=== PATIENT | female | born 1960 | race African-American/Black ===

== ENCOUNTER 2021-05-18 22:40 | Emergency (ER) | payer OTHER ==
[~2021-05-18] VITALS: Ht 157.5 cm; Wt 96.8 kg
[2021-05-19 00:21] LABS: CALCIUM 7.2 mg/dL (8.5-10.1); CREATININE 10.4 mg/dL (0.6-1.0); POTASSIUM 5.4 mmol/L (3.5-5.1)
[2021-05-19 00:22] LABS: ABSOLUTE NEUTROPHILS 3.3 thou/uL (1.4-8.2); BASOPHILS 0.3 % (0.0-2.0); EOSINOPHILS 1.9 % (0.0-3.0); HEMOGLOBIN 16.7 gm/dL (12.0-15.0); LYMPHOCYTES 8.8 % (24.0-44.0); MCH 28.2 pg (26.0-34.0); MCHC 30.9 g/dL (28.0-37.0); MCV 91.3 fL (80.0-100.0); MONOCYTES 10.9 % (1.0-8.0); PLATELET COUNT 76 thou/uL (150-400); POLYS 78.1 % (36.0-66.0); RBC 5.91 mil/uL (4.20-5.00); RDW 17.1 % (10.5-14.5); WBC 4.2 thou/uL (4.0-11.0)
[2021-05-19 00:27] LABS: ALBUMIN 2.3 g/dL (3.4-5.0); TOTAL BILIRUBIN 0.3 mg/dL (0.2-1.0); TOTAL PROTEIN 5.7 g/dL (6.4-8.2)
[2021-05-19 01:55] VITALS: BP 152/73
--- NOTE | 2021-05-19 10:03 | EKG ---
[place] [address] [facility] [employer] [facility] [employer] [place] [address] ELECTROCARDIOGRAM REPORT Name: BARBARA LIMON Room #: [facility] Dixon#: [id number] Admission: 05/18/21 Attend Phys: Discharge: 05/19/21 Date of : 62 Report #: [id number] [facility] ED Test Date: 2021-05-18 Test Time: 23:51:06 Pat Name: BARBARA LIMON Department: Room: Gender: F Minister Helper: christine : 1960 Requested By: Dwayne Wilson Order Number: [id number] MD: Jorje Serna Measurements Intervals [place] Rate: 88 P: 57 SD: 137 QRS: 55 QRSD: 92 T: 258 QT: 393 QTc: 476 Interpretive Statements Sinus rhythm Abnormal T, consider ischemia, inferior and lateral No previous ECG available for comparison Electronically Signed On 05-19-2021 7:53:02 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
== END 2021-05-19 02:03 | disposition home or self-care (01) ==
LOC: ER 22:40
PROVIDERS: Emergency Medicine
DX: R06.00 Dyspnea, unspecified (principal); E11.22 Type 2 diabetes mellitus with diabetic chronic kidney disease; I12.0 Hypertensive chronic kidney disease with stage 5 chronic kidney disease or end stage renal disease; N18.6 End stage renal disease; Z90.49 Acquired absence of other specified parts of digestive tract